=== PATIENT | male | born 1955 | race Two or more races ===

== ENCOUNTER 2022-10-20 15:19 | Inpatient (IN) | payer MEDICAID ==
[~2022-10-20] VITALS: Ht 188 cm; Wt 83.9 kg
--- NOTE | 2022-10-20 15:25 | NUR ---
PT ARRIVED VIA EMS; [facility]; PT HAS A FC WITH PURULENT URINE DRAINING.
--- NOTE | 2022-10-20 15:26 | NUR ---
JONY PAUL AT BEDSIDE FOR MSE
[2022-10-20] MEDS ORDERED: IV NORMAL SALINE 1000 ML BAG IV ONE (15:30)
[2022-10-20] MEDS ORDERED: TAMS-3 PO (16:09)
[2022-10-20] MEDS ORDERED: PANT40TA49 PO (16:09)
[2022-10-20] MEDS ORDERED: ZINC SULFATE PO (16:09)
[2022-10-20] MEDS ORDERED: ASCO500C18 PO (16:13)
[2022-10-20] MEDS ORDERED: METO-356 PO (16:13)
[2022-10-20] MEDS ORDERED: ACET325C7 PO (16:13)
[2022-10-20] MEDS ORDERED: QUET50TA PO (16:13)
[2022-10-20] MEDS ORDERED: LOSA100T31 PO (16:13)
[2022-10-20] MEDS ORDERED: METF-442 PO (16:13)
[2022-10-20] MEDS ORDERED: MULT-594 PO (16:13)
[2022-10-20] MEDS ORDERED: DOCU-141 PO (16:13)
[2022-10-20 16:15] LABS: HEMATOCRIT 32.2 % (36.7-47.1); MEAN CORPUSCULAR HEMOGLOBIN 30.8 uug (23.8-33.4); PLATELET COUNT (AUTO) 365 K/uL (152-348)
[2022-10-20 16:27] LABS: CARBON DIOXIDE 18 mmol/L (21-32); CHLORIDE 106 mmol/L (98-107); CREATININE 2.4 mg/dL (0.6-1.3); GLUCOSE 160 mg/dL (74-106); POTASSIUM 3.8 mmol/L (3.5-5.1); UREA NITROGEN, BLOOD 68 mg/dL (7-18)
[2022-10-20] MEDS ORDERED: levoFLOXacin 750MG/D5W 150 ML IV ONE ×2 (16:30)
--- NOTE | 2022-10-20 16:30 | NUR ---
NEW FC INSERTED AND UA OBTAINED AND SENT TO LAB. PT ANTONIO WELL
[2022-10-20 16:48] LABS: ALANINE AMINOTRANSFERASE 19 U/L (16-63); ALKALINE PHOSPHATASE 102 U/L (50-136); ASPARTATE AMINOTRANSFERASE 18 U/L (15-37); BILIRUBIN,DIRECT 0.1 mg/dL (0.0-0.2); BILIRUBIN,TOTAL 0.3 mg/dL (0.2-1.0); TOTAL PROTEIN, SERUM 8.3 g/dL (6.4-8.2)
[2022-10-20] MEDS ORDERED: ASPIRIN 300 MG RECTAL SUPP RC ONE ×2 (17:30→18:25)
[2022-10-20 17:36] LABS: *CLARITY,URINE TURBID (CLEAR); *COLOR,URINE LIGHT YELLOW (YELLOW)
[2022-10-20 17:37] LABS: *BILIRUBIN,URIN NEGATIVE (NEGATIVE); *BLOOD, URINE NEGATIVE (NEGATIVE); *KETONES,URINE NEGATIVE (NEGATIVE); *UROBILINOGEN,URINE 0.2 E.U./dl (NORMAL); LEUKOCYTE ESTERASE ,URINE 2+ (NEGATIVE); NITRITE, URINE TRACE (NEGATIVE); UGLUCOSE NEGATIVE (NEGATIVE)
[2022-10-20] MEDS ORDERED: DOCUSATE SODIUM 100 MG CAPSULE PO PRN (18:00)
[2022-10-20] MEDS ORDERED: REMEDY ESSENTIAL ZINC PASTE 113 GM TP PRN (18:00)
[2022-10-20] MEDS ORDERED: MAGNESIUM HYDROXIDE 30 ML LIQUID UDC PO PRN (18:00)
[2022-10-20] MEDS ORDERED: ACETAMINOPHEN 325 MG TABLET PO PRN (18:00)
[2022-10-20] MEDS ORDERED: ONDANSETRON 4 MG/2 ML VIAL IV PRN (18:00)
[2022-10-20 18:44] LABS: BACTERIA,URINE MODERATE /HPF (NONE SEEN); RBC,URINE 0-3 /HPF (0-3); SQUAMOUS EPITHELIAL CELL,UR FEW /HPF (NONE SEEN); WBC,URINE 20-50 /HPF (0-3)
[2022-10-20 18:45] LABS: TRIPLE PHOSPHATE CRYSTAL,UR FEW /HPF (NONE SEEN)
[2022-10-20] MEDS ORDERED: DEXTROSE 50% 50 ML DISP.SYRIN IV PRN (19:00)
--- NOTE | 2022-10-20 19:10 | NUR ---
SBAR TO TORRI KNAPP
[2022-10-20] MEDS ORDERED: VANCOMYCIN IV 1,750 MG in IV DEXTROSE 5% 500 ML IV ONE (19:30)
--- NOTE | 2022-10-20 21:04 | NUR ---
Report given to Stacey KNAPP Tele.
[2022-10-20] MEDS: CEFEPIME HCL 1 G in IV DEXTROSE 5% 50 ML IV SCH (22:00)
[2022-10-20 22:30] VITALS: BP 108/65
[2022-10-20] MEDS ORDERED: VANCOMYCIN 1000 MG VIAL ONE (22:53)
[2022-10-20] MEDS ORDERED: CEFEPIME HCL 1 G VIAL ONE (22:54)
--- NOTE | 2022-10-20 23:00 | NUR ---
RECEIVED FROM ER 67 Y/O MALE ALERT AND ORIENTED X1-2 PT CAME FROM [facility] PATIENT HAS HX OF DEMENTIA AND HAS IV 20G RT LATERAL FOREARM. INFUSING VANCOMYCIN ORDERED PATIENT TOLERATING WELL PATIENT HAS BREAKDOWN OF SKIN RASH IN GROIN AREA AND REDNESS. PT ALSO HAS EDEMATOUS SCROTUM ALONG WITH FOURTH TOE AMPUTATED PT CAME UP TO UNIT WITH DRY DRESSING STUCK TO WOUND CLEANED WOUND APPLIED NEW DRESSING ALONG WITH GAUZE AND JUANITA WALLACE ORDERED WOUND CONSULT. PT IS TELEMONITOR WHICH SHOWS SINUS RHYTHM. WILL CONTINUE TO MONITOR EVERY 2 HOURS FALL AND SAFETY ANY OTHER NEEDS PATIENT MAY HAVE. PAVAN FROM LAB REPORTED A CRITICAL LAB VALUE OF 389 TROPONIN BUT IS TRENDING DOWN FROM 479 WILL ENDORSE TO AM NURSE.
[2022-10-20] MEDS: TAMSULOSIN HCL 0.4 MG CAP.SR.24H PO SCH (23:53)
[2022-10-20] MEDS: METOPROLOL SUCCINATE XL 25 MG TAB.SR.24H PO SCH (23:55)
[2022-10-20] MEDS: BLOOD SUGAR DIAGNOSTIC 1 EACH STRIP VI SCH (23:55)
[2022-10-20] MEDS: HEPARIN SODIUM,PORCINE 5,000 UNITS/ML VIAL SQ SCH (23:56)
[2022-10-21] VITALS: BP 99/57
[2022-10-21 04:04] VITALS: BP 110/36
[2022-10-21] MEDS ORDERED: CEFEPIME HCL 1 G VIAL ONE (06:25)
[2022-10-21] MEDS: PANTOPRAZOLE SODIUM 40 MG TABLET.DR PO SCH (06:46)
[2022-10-21] MEDS: BLOOD SUGAR DIAGNOSTIC 1 EACH STRIP VI SCH ×4 (06:46→21:31)
[2022-10-21] MEDS: CEFEPIME HCL 1 G in IV DEXTROSE 5% 50 ML IV SCH ×3 (06:46→21:28)
[2022-10-21 07:16] LABS: HEMATOCRIT 28.5 % (36.7-47.1); MEAN CORPUSCULAR HEMOGLOBIN 30.7 uug (23.8-33.4); MEAN CORPUSCULAR VOLUME 93.8 fL (73.0-96.2); PLATELET COUNT (AUTO) 278 K/uL (152-348)
[2022-10-21 07:41] LABS: CREATININE 2.2 mg/dL (0.6-1.3); MAGNESIUM 1.8 mg/dL (1.8-2.4); PHOSPHOROUS 2.9 mg/dL (2.5-4.9)
[2022-10-21] MEDS: HEPARIN SODIUM,PORCINE 5,000 UNITS/ML VIAL SQ SCH ×2 (09:28→21:31)
[2022-10-21] MEDS: MULTIVITAMINS,THERAPEUTIC TABLET PO SCH (09:31)
[2022-10-21] MEDS: LOSARTAN POTASSIUM 50 MG TABLET PO SCH (09:32)
[2022-10-21] MEDS: QUETIAPINE FUMARATE 25 MG TABLET PO SCH ×2 (09:32→16:12)
[2022-10-21] MEDS: ASCORBIC ACID 500 MG TABLET PO SCH ×2 (09:33→16:12)
[2022-10-21] MEDS: METOPROLOL SUCCINATE XL 25 MG TAB.SR.24H PO SCH ×2 (09:33→21:29)
--- NOTE | 2022-10-21 11:49 | NUR ---
PATIENT SEEN AND EXAMINED BY JUANITA WALLACE WITH NEW ORDERS AND NOTED.
[2022-10-21 11:50] VITALS: BP 100/57
--- NOTE | 2022-10-21 12:41 | NUR ---
TROPONIN LEVEL PER LAB IS 160 TRENDING IN THE RIGHT DIRECTION BRITTANY GARCIA WITH NO NEW ORDERS AT THIS TIME.
[2022-10-21] MEDS: IV NS 1000 ML 1,000 ML IV PRN (16:01)
[2022-10-21 16:12] VITALS: BP 97/54
[2022-10-21] MEDS ORDERED: CLOTRIMAZOLE 1% CREAM 30 GM TUBE TOP SCH (20:00)
--- NOTE | 2022-10-21 21:00 | NUR ---
RECEIVED REPORT FROM AM NURSE KASSIDY PATIENT TROPONIN LEVEL IS TRENDING DOWN AND ENTERED PATIENT ROOM STATES" I DIDN'T RECEIVED DINNER.' PATIENT WAS GIVEN DINNER ATE 100 PERCENT OF MEAL. PATIENT DENIES PAIN. PT HS BLOOD SUGAR IS 157 PATIENT WAS GIVEN 2 UNIT OF REGULAR INSULIN FALL AND SAFETY MAINTAINED. WILL CONTINUE TO MONITOR FOR SAFETY.
[2022-10-21] MEDS: ATORVASTATIN 20 MG TABLET PO SCH (21:29)
[2022-10-21] MEDS: TAMSULOSIN HCL 0.4 MG CAP.SR.24H PO SCH (21:29)
[2022-10-21] MEDS: INSULIN REGULAR, HUMAN 300 UNIT/3 ML VIAL SQ PRN (21:36)
[2022-10-22] MEDS: IV NS 1000 ML 1,000 ML IV PRN ×2 (02:25→16:04)
[2022-10-22 05:39] LABS: HEMATOCRIT 23.6 % (36.7-47.1); PLATELET COUNT (AUTO) 231 K/uL (152-348)
[2022-10-22 05:53] LABS: CREATININE 2.3 mg/dL (0.6-1.3); POTASSIUM 3.8 mmol/L (3.5-5.1)
[2022-10-22] MEDS: CEFEPIME HCL 1 G in IV DEXTROSE 5% 50 ML IV SCH (06:27)
[2022-10-22] MEDS: PANTOPRAZOLE SODIUM 40 MG TABLET.DR PO SCH (06:27)
[2022-10-22] MEDS: BLOOD SUGAR DIAGNOSTIC 1 EACH STRIP VI SCH ×4 (06:40→20:38)
[2022-10-22] MEDS: INSULIN REGULAR, HUMAN 300 UNIT/3 ML VIAL SQ PRN ×2 (06:40→11:32)
[2022-10-22] MEDS ORDERED: VANCOMYCIN IV 1,250 MG in IV DEXTROSE 5% 250 ML IV ONE (08:00)
--- NOTE | 2022-10-22 08:00 | NUR ---
PATIENT IS AWAKE ALERT COOPERATIVE AND VERBALISED NEEDS DENIES PAIN OR DISCOMFORTS AT THIS TIME.ON IVF WITH NS AT 100 ML/HR WITH NO S/S OF INFILTERATION ON SITE NO S/S OF HYPO/HYPERGLYCEMIC REACTIONS AT THIS TIME CALL LIGHTS AND PERSONAL BELONGINGS ARE WITHIN EASY REACH WILL CONTINUE TO OBSERVE.
[2022-10-22] MEDS: ASPIRIN EC 81 MG TABLET.DR PO SCH (08:32)
[2022-10-22] MEDS: QUETIAPINE FUMARATE 25 MG TABLET PO SCH ×2 (08:32→16:08)
[2022-10-22] MEDS: MULTIVITAMINS,THERAPEUTIC TABLET PO SCH (08:32)
[2022-10-22] MEDS: METOPROLOL SUCCINATE XL 25 MG TAB.SR.24H PO SCH ×2 (08:33→20:29)
[2022-10-22] MEDS: LOSARTAN POTASSIUM 50 MG TABLET PO SCH (08:34)
[2022-10-22] MEDS: HEPARIN SODIUM,PORCINE 5,000 UNITS/ML VIAL SQ SCH ×2 (09:13→20:33)
[2022-10-22] MEDS: ASCORBIC ACID 500 MG TABLET PO SCH ×2 (09:42→16:08)
[2022-10-22 12:00] VITALS: BP 99/47
--- NOTE | 2022-10-22 14:00 | NUR ---
PATIENT SEEN AND EXAMINED BY JUANITA WALLACE WITH NEW ORDERS PATIENT REMAIN ON IV ATB WITH NO ADVERSE OR ALLERGIC REACTIONS AT THIS TIME ASSISTED WITH REPOSITIONING Q2H HEELS FLOATED.MADE COMFORTABLE WILL CONTINUE TO OBSERVE.
[2022-10-22 16:00] VITALS: BP 90/53
[2022-10-22] MEDS: CEFEPIME HCL 2 G in IV DEXTROSE 5% 100 ML IV SCH (17:17)
--- NOTE | 2022-10-22 19:35 | NUR ---
Received patient in bed, alert oriented, no sob no chest pain, tele monitor sinus rhythm, patient has no complain of pain at this time, good cath patent draining with yellow color urine, kept clean dry and comfortable. cont to monitor.
[2022-10-22 20:00] VITALS: BP 101/53
[2022-10-22] MEDS: TAMSULOSIN HCL 0.4 MG CAP.SR.24H PO SCH (20:28)
[2022-10-22] MEDS: ATORVASTATIN 20 MG TABLET PO SCH (20:28)
[2022-10-23] VITALS: BP 103/53
[2022-10-23] MEDS: IV NS 1000 ML 1,000 ML IV PRN ×2 (01:00→16:42)
[2022-10-23 04:00] VITALS: BP 96/53
[2022-10-23] MEDS: CEFEPIME HCL 2 G in IV DEXTROSE 5% 100 ML IV SCH ×2 (05:01→17:17)
[2022-10-23 06:38] LABS: HEMATOCRIT 22.1 % (36.7-47.1); MEAN CORPUSCULAR HEMOGLOBIN 31.2 uug (23.8-33.4); MEAN CORPUSCULAR VOLUME 93.9 fL (73.0-96.2); PLATELET COUNT (AUTO) 215 K/uL (152-348)
[2022-10-23] MEDS: PANTOPRAZOLE SODIUM 40 MG TABLET.DR PO SCH (06:38)
[2022-10-23] MEDS: BLOOD SUGAR DIAGNOSTIC 1 EACH STRIP VI SCH ×4 (06:40→20:54)
[2022-10-23 07:09] LABS: CREATININE 2.3 mg/dL (0.6-1.3); POTASSIUM 3.7 mmol/L (3.5-5.1)
--- NOTE | 2022-10-23 07:13 | NUR ---
Patient awake no sob no chest pain, no complain of pain, good cath patent, v/s wnl, kept clean and dry. cont to monitor.
--- NOTE | 2022-10-23 07:31 | NUR ---
RECEIVED PATIENT ASLEEP BUT EASILY AROUSABLE ON ROUNDS DENIES PAIN OR DISCOMFORTS ON ROOM AIR WITH NO SHORTNESS OF BREATH REMAIN ON IVF ORDERED WITH NO S/S OF INFILTERATION ON SITE REPOSITIONED FOR COMFORT HEELS FLOATED CALL LIGHTS AND PERSONAL BELONGINGS ARE WITHIN EASY REACH MADE COMFORTABLE WILL CONTINUE TO OBSERVE
[2022-10-23] MEDS ORDERED: VANCOMYCIN IV 750 MG in IV DEXTROSE 5% 250 ML IV ONE (08:00)
[2022-10-23] MEDS: ASPIRIN EC 81 MG TABLET.DR PO SCH (08:52)
[2022-10-23] MEDS: QUETIAPINE FUMARATE 25 MG TABLET PO SCH ×2 (08:53→16:41)
[2022-10-23] MEDS: ASCORBIC ACID 500 MG TABLET PO SCH ×2 (08:53→16:42)
[2022-10-23] MEDS: MULTIVITAMINS,THERAPEUTIC TABLET PO SCH (08:53)
[2022-10-23] MEDS: METOPROLOL SUCCINATE XL 25 MG TAB.SR.24H PO SCH ×2 (09:00→20:55)
[2022-10-23] MEDS: LOSARTAN POTASSIUM 50 MG TABLET PO SCH (09:00)
[2022-10-23] MEDS: HEPARIN SODIUM,PORCINE 5,000 UNITS/ML VIAL SQ SCH ×2 (09:02→21:05)
[2022-10-23] MEDS: CLOTRIMAZOLE 1% CREAM 30 GM TUBE TOP SCH ×2 (09:08→22:03)
[2022-10-23] MEDS: REMEDY ESSENTIAL ZINC PASTE 113 GM TP SCH ×2 (09:09→22:04)
--- NOTE | 2022-10-23 09:26 | NUR ---
DR MARTÍNEZ HERE SEEN PATIENT WITH NEW ORDERS AND NOTED.
--- NOTE | 2022-10-23 10:38 | NUR ---
WOUND CARE CONSULT: PT ADAMANTLY REFUSED SKIN ASSESSMENT AND STATES WANTS "INJECTION OF XYZ". RN AND PEST CONTROLLER ASSISTANT AWARE. DISCUSSED SKIN PROTECTION WITH NURSING STAFF. PER ADMISSION PHOTOS, PT HAS LEFT HIP WOUND AND FOOT WOUNDS, PRESENT ON ADMISSION. DR DANIELS AND DR AREVALO CALLED FOR SURGICAL AND DPM CONSULTS. MD IN AGREEMENT WITH PLAN OF CARE.
[2022-10-23 12:00] VITALS: BP 114/69
[2022-10-23] MEDS: INSULIN REGULAR, HUMAN 300 UNIT/3 ML VIAL SQ PRN ×2 (12:10→21:06)
--- NOTE | 2022-10-23 13:16 | NUR ---
DR AREVALO CARPET RENOVATOR HERE AND SEEN PATIENT WITH NO NEW ORDERS AT THIS TIME PATIENT REFUSED TO HAVE HIM SEE THE WOUND ON HID RIGHT FOOT.
--- NOTE | 2022-10-23 15:17 | NUR ---
PATIENT STATED HAS PAIN ON HIS ENTIRE BODY ESPECIALLY HIS LOWER EXTREMITIES AT TIMES JUANITA NOTIFIED WITH ORDERS WILL ASSESS PATIENT AND WILL MEDICATE NEEDED
[2022-10-23 16:00] VITALS: BP 123/66
[2022-10-23] MEDS: HYDROCODONE/APAP 5-325MG TABLET PO PRN ×2 (16:41→20:56)
--- NOTE | 2022-10-23 16:41 | NUR ---
MEDICATED WITH NORCO FOR PAIN ORDERED.
--- NOTE | 2022-10-23 17:55 | NUR ---
URINE SPECIMEN OBTAINED FROM THE [facility] C[facility] AND SENT TO THE LAB ORDERED.
[2022-10-23 18:02] LABS: *BILIRUBIN,URIN NEGATIVE (NEGATIVE); *BLOOD, URINE 2+ (NEGATIVE); *CLARITY,URINE CLEAR (CLEAR); *COLOR,URINE YELLOW (YELLOW); *KETONES,URINE NEGATIVE (NEGATIVE); *UROBILINOGEN,URINE 0.2 E.U./dl (NORMAL); LEUKOCYTE ESTERASE ,URINE 3+ (NEGATIVE); NITRITE, URINE NEGATIVE (NEGATIVE); PH,URINE 6.5 (5.0-8.0); UGLUCOSE NEGATIVE (NEGATIVE)
[2022-10-23 18:09] LABS: *CREATININE,URINE 30.3 mg/dL (30-125)
--- NOTE | 2022-10-23 19:30 | NUR ---
Received patient in bed alert able to make needs known, no sob no chest pain, complain of bilateral leg and feet pain, will medicate patient as ordered. Patient calm and cooperative with medications, but patient uncooperative with care, refused to be examine by belt worker, cont to monitor.
[2022-10-23 20:00] VITALS: BP 133/79
[2022-10-23] MEDS: ATORVASTATIN 20 MG TABLET PO SCH (20:55)
[2022-10-23] MEDS: TAMSULOSIN HCL 0.4 MG CAP.SR.24H PO SCH (20:55)
--- NOTE | 2022-10-23 21:00 | NUR ---
Patient awake, refused to be clean, patient has bowel movement and refused to be clean , became verbally aggressive, and threaten staff that he will robb employee. Patient threaten staff that he will be physically combative towards employee, reported to charge nurse. cont to encourage .
--- NOTE | 2022-10-24 | NUR ---
Patient soiled with bowel movement, continue to refused to be clean, despite explanation, of risk for further skin breakdown, still refused, cont to encourage.
[2022-10-24] MEDS: IV NS 1000 ML 1,000 ML IV PRN (02:00)
[2022-10-24] MEDS: HYDROCODONE/APAP 5-325MG TABLET PO PRN ×2 (03:42→21:10)
--- NOTE | 2022-10-24 03:52 | NUR ---
Patient medicated with Narco po for leg/foot pain, tried to obtain stool for sample still refused, explained to patient that he would not be moved at all just to scoop a specimen of BM still refused, refused to be clean.
[2022-10-24] MEDS: CEFEPIME HCL 2 G in IV DEXTROSE 5% 100 ML IV SCH ×2 (05:08→17:07)
--- NOTE | 2022-10-24 05:55 | NUR ---
Patient refused lab works, gets agitated, refused to be clean, patient tend to be hostile towards the staff, cont to offer.
[2022-10-24] MEDS: PANTOPRAZOLE SODIUM 40 MG TABLET.DR PO SCH (06:19)
[2022-10-24] MEDS: BLOOD SUGAR DIAGNOSTIC 1 EACH STRIP VI SCH ×4 (06:22→21:06)
[2022-10-24] MEDS: MULTIVITAMINS,THERAPEUTIC TABLET PO SCH (08:33)
[2022-10-24] MEDS: ASCORBIC ACID 500 MG TABLET PO SCH ×2 (08:33→16:54)
[2022-10-24] MEDS: HEPARIN SODIUM,PORCINE 5,000 UNITS/ML VIAL SQ SCH ×2 (08:35→20:42)
[2022-10-24] MEDS: METOPROLOL SUCCINATE XL 25 MG TAB.SR.24H PO SCH ×2 (08:37→20:52)
[2022-10-24] MEDS: QUETIAPINE FUMARATE 25 MG TABLET PO SCH ×2 (08:42→16:54)
[2022-10-24] MEDS: REMEDY ESSENTIAL ZINC PASTE 113 GM TP SCH ×2 (08:43→21:06)
[2022-10-24] MEDS: CLOTRIMAZOLE 1% CREAM 30 GM TUBE TOP SCH ×2 (08:43→20:53)
--- NOTE | 2022-10-24 10:00 | NUR ---
PT RECEIVED AM MEDS AND TOLERATED WELL. REMINDED THE IMPORTANCE OF REPOSITIONING AND CLEANING BUT REFUSE TO BE TURNED AND CLEANED. ASKED 3X BUT STILL PT SAID NO.
--- NOTE | 2022-10-24 10:18 | NUR ---
SW consult requested for 67 year old patient to assess living situation. Patient is alert and oriented X4 and presents with anxious mood and congruent affect. Patient appears agitated and refused to answer SW assessment questions. Per patient's facesheet, his primary contact is Eugenio Medel ([phone]) and he currently resides at [address] [place] [address]. SW unable to ascertain history of substance abuse and there is no toxicology report. SW unable to ascertain history of psychiatric diagnosis. SW spoke to the patient's son, Eugenio ([phone]) and he states the patient was living in a board and care in [place] and he was receiving appropriate care at the facility. Eugenio states that he is open to the patient going to a SNF closer to where he lives in [place] if the patient is agreeable and he will talk to him today in person.
[2022-10-24 12:00] VITALS: BP 127/61
--- NOTE | 2022-10-24 13:00 | NUR ---
pT. TOOK medications and tolerated it well. BUT HE REFUSED TO HAVE HIS LABWORKS DONE INSPITE OF THE TEACHINGS PROVIDED. WILL CONTINUE TO ENCOURAGE AND ASK.
[2022-10-24 16:00] VITALS: BP 120/79
--- NOTE | 2022-10-24 17:43 | NUR ---
PT. REFUSED INK PRINTER AND WOUND CONSULT. LEFT MESSAGE TO FAMILY (SON) TO TALK TO THE PT TO ENCOURAGE HIM TO COOPERATE. WILL CONTINUE TO ENCOURAGE THE PT.
[2022-10-24 20:00] VITALS: BP 128/65
[2022-10-24] MEDS: TAMSULOSIN HCL 0.4 MG CAP.SR.24H PO SCH (20:39)
[2022-10-24] MEDS: DOXYCYCLINE HYCLATE IV 100 MG in IV DEXTROSE 5% 100 ML IV SCH (20:39)
[2022-10-24] MEDS: ATORVASTATIN 20 MG TABLET PO SCH (20:39)
[2022-10-24] MEDS: CADEXOMER IODINE 40 GM TUBE TOP SCH (21:00)
--- NOTE | 2022-10-24 22:05 | NUR ---
PT HAD A BOWEL MOVEMENT. REFUSED TO BE CLEANED UP, PT STATED IT HURTS TO MOVE GET THE FUCK OUT. ALSO REFUSED FOR WOUNDS TO BE PHOTOGRAPHED FOR DOCUMENTATION.
[2022-10-25] MEDS: IV NS 1000 ML 1,000 ML IV PRN ×2 (03:17→14:59)
[2022-10-25 04:00] VITALS: BP 101/50
[2022-10-25] MEDS: CEFEPIME HCL 2 G in IV DEXTROSE 5% 100 ML IV SCH ×2 (05:01→17:34)
[2022-10-25] MEDS: HYDROCODONE/APAP 5-325MG TABLET PO PRN (06:14)
[2022-10-25] MEDS: PANTOPRAZOLE SODIUM 40 MG TABLET.DR PO SCH (06:14)
[2022-10-25] MEDS: BLOOD SUGAR DIAGNOSTIC 1 EACH STRIP VI SCH ×4 (06:38→21:16)
--- NOTE | 2022-10-25 06:38 | NUR ---
Pt clean and dry. All medications administered. All needs attended.
[2022-10-25 06:43] LABS: HEMATOCRIT 23.4 % (36.7-47.1); MEAN CORPUSCULAR HEMOGLOBIN 31.3 uug (23.8-33.4); MEAN CORPUSCULAR VOLUME 93.1 fL (73.0-96.2); PLATELET COUNT (AUTO) 233 K/uL (152-348)
--- NOTE | 2022-10-25 07:30 | NUR ---
RECEIVED REPORT: 1) MENTAL STATE: AOx2-2 2) BREATHING: No sign of SOB - RA, distress, non verbal signs of pain. 3) ELIMINATION: Has a catheter in situ - draining slightly concentrated urine. 4) INFECTION CONTROL: (i) Patient has iv fluids running as per regime. (ii) Iv access patent, clean, dry and no sign of infection or inflammation observed 5) PRESSURE AREA CARE: Patient has wounds - however, no pics, refuse wound care conduct and family welfare social work professor review 6) MOBILITY: Patient in bed bound. 7) HYGIENE: Refuses most care 8) BLOOD SUGAR CONTROL: Patient is diabetic - ACHS blood sugars but never need insulin cover. 9) Will continue to assess, plan, implement and evaluate care accordingly. 10) PLAN; (i) maintain safety (ii) reassure patient
[2022-10-25] MEDS: CLOTRIMAZOLE 1% CREAM 30 GM TUBE TOP SCH ×2 (09:00→21:00)
[2022-10-25] MEDS ORDERED: CIPR-262 PO (09:56)
[2022-10-25] MEDS ORDERED: DOXY100T2 PO (09:56)
[2022-10-25] MEDS: MULTIVITAMINS,THERAPEUTIC TABLET PO SCH (10:07)
[2022-10-25] MEDS: DOXYCYCLINE HYCLATE IV 100 MG in IV DEXTROSE 5% 100 ML IV SCH (10:07)
[2022-10-25] MEDS: ASCORBIC ACID 500 MG TABLET PO SCH ×2 (10:07→17:33)
[2022-10-25] MEDS: METOPROLOL SUCCINATE XL 25 MG TAB.SR.24H PO SCH ×2 (10:07→21:15)
[2022-10-25] MEDS: QUETIAPINE FUMARATE 25 MG TABLET PO SCH ×2 (10:07→17:33)
[2022-10-25] MEDS: CADEXOMER IODINE 40 GM TUBE TOP SCH (10:08)
[2022-10-25] MEDS: REMEDY ESSENTIAL ZINC PASTE 113 GM TP SCH ×2 (10:08→21:00)
[2022-10-25] MEDS: HEPARIN SODIUM,PORCINE 5,000 UNITS/ML VIAL SQ SCH ×2 (10:14→21:15)
--- NOTE | 2022-10-25 11:26 | NUR ---
Blood Sugar 119 - no insulin cover required.
[2022-10-25 11:31] VITALS: BP 101/56
--- NOTE | 2022-10-25 11:55 | NUR ---
HYGIENE: 1) Refused to have a bed bath - stated that "Its my body - i don't want" 2) Reassurance provided to let RN/SIGNALS INTELLIGENCE SUPERINTENDENT know if patient does change his mind
--- NOTE | 2022-10-25 14:45 | NUR ---
IV FLUIDS: 1) New 1L bag of N/S 0.9% administered as per prescription. 2) IV access remains patent, clean, dry, and no sign of infection or inflammation observed.
--- NOTE | 2022-10-25 14:48 | NUR ---
RADHA consult requested for discharge planning. Patient is a 67 year old male that presents with anxious mood and congruent affect. Patient is alert and oriented X3. RADHA asked the patient where he was residing before being admitted to the hospital and the patient gave the address [address] [place] [id number], but refused to give the name of the board and care facility. RADHA was unable to ascertain information for the board and care facility the patient resided in. RADHA left a voicemail for the patient's son asking to call this RADHA back with information and informed charge nurse Shannon and porter sample case, Faviola. RADHA will continue to follow up.
--- NOTE | 2022-10-25 15:06 | NUR ---
DISCHARGE PLAN: 1) Spoke to vocational case manager - awaiting to hear from son to discharge patient. 2) Safety issues are of concern because of mobility and mental state. 3) Patient and son not corporative with vocational case manager. 4) Information conflict between son and patient in regards to where patient lives.
--- NOTE | 2022-10-25 16:15 | NUR ---
Discussed with pt regarding COORDINATOR OF ONLINE PROGRAMS's concern about pt refusing to be cleaned and turned. Pt was stating - "THIS IS MY BODY THIS IS MY RIGHT." discussed with pt risk on not being turned q 2 hrs. Educated pt and Emphasized importance to being turned q 2 hrs to promote skin care and prevent skin breakdown. pt continuously refuse treatment.
--- NOTE | 2022-10-25 16:30 | NUR ---
BS - 125 - NOT SHOWING IN LAB RESULTS - NO INSULIN COVER REQUIRED
[2022-10-25 16:38] VITALS: BP 116/75
--- NOTE | 2022-10-25 17:15 | NUR ---
PM MEDICATION - Took all due meds without any issues or encouragement.
--- NOTE | 2022-10-25 17:43 | NUR ---
EATING & DRINKIN) Noticed patient only ate the Tuna that was delivered with salad. 2) Offered him a sandwich & soda - of which patient accepted 3) Ate 100% of his food
--- NOTE | 2022-10-25 19:47 | NUR ---
ENDORSED CARE TO NIGHT STAFF ACCORDINGLY
[2022-10-25 21:08] VITALS: BP 111/60
[2022-10-25] MEDS: ATORVASTATIN 20 MG TABLET PO SCH (21:15)
[2022-10-25] MEDS: TAMSULOSIN HCL 0.4 MG CAP.SR.24H PO SCH (21:15)
[2022-10-25] MEDS: DOXYCYCLINE HYCLATE 100 MG TABLET PO SCH (21:15)
[2022-10-26] MEDS: IV NS 1000 ML 1,000 ML IV PRN (03:09)
[2022-10-26] MEDS: CEFEPIME HCL 2 G in IV DEXTROSE 5% 100 ML IV SCH (06:00)
[2022-10-26] MEDS: PANTOPRAZOLE SODIUM 40 MG TABLET.DR PO SCH (06:06)
[2022-10-26 06:09] VITALS: BP 104/56
[2022-10-26] MEDS: BLOOD SUGAR DIAGNOSTIC 1 EACH STRIP VI SCH ×2 (06:32→11:44)
[2022-10-26] MEDS: QUETIAPINE FUMARATE 25 MG TABLET PO SCH (08:46)
[2022-10-26] MEDS: DOXYCYCLINE HYCLATE 100 MG TABLET PO SCH (08:46)
[2022-10-26] MEDS: METOPROLOL SUCCINATE XL 25 MG TAB.SR.24H PO SCH (08:51)
[2022-10-26] MEDS: MULTIVITAMINS,THERAPEUTIC TABLET PO SCH (08:51)
[2022-10-26] MEDS: HEPARIN SODIUM,PORCINE 5,000 UNITS/ML VIAL SQ SCH (08:52)
[2022-10-26] MEDS: ASCORBIC ACID 500 MG TABLET PO SCH (08:52)
[2022-10-26] MEDS: CADEXOMER IODINE 40 GM TUBE TOP SCH (09:00)
[2022-10-26] MEDS: CLOTRIMAZOLE 1% CREAM 30 GM TUBE TOP SCH (09:00)
[2022-10-26] MEDS: REMEDY ESSENTIAL ZINC PASTE 113 GM TP SCH (09:00)
[2022-10-26 11:37] VITALS: BP 91/49
--- NOTE | 2022-10-26 11:44 | NUR ---
patient is alert, oriented to name, date of , and place. no sob, respirations are even nonlabored, offered wound care, patient strongly refused to have wound care done, and have pictures taken. patient became agitated and started yelling that get the f... out of here I do not want any wound care and no pictures. Murray catheter is intact, draining yellow urine. patient took all his morning medications.
[2022-10-26] MEDS: HYDROCODONE/APAP 5-325MG TABLET PO PRN (13:34)
[2022-10-26] MEDS ORDERED: LORAZEPAM 2 MG/1 ML VIAL IV ONE (14:00)
--- NOTE | 2022-10-26 15:32 | NUR ---
patient refuse to go earlier, ambulance went back, called BHARATHI Solomon and ativan given as ordered. patient is sleepy at this time, however gets agitated when approached, and still refused to go. laborer cook house made aware. son francesco called and son spoke to patient as well. patient stated he is not going. Addendum: 10/26/22 at 1718 by ANDI VALDOVINOS RN RN offered wound care again, patient refused any wound care to be done. risks and benefits explained, patient still refused wound care. patient right to refuse respected.
[2022-10-26 15:41] VITALS: BP 93/52
[2022-10-26] MEDS ORDERED: PROTEIN SUPPLEMENT (PROSTAT) 30 ML LIQUID PO SCH (17:00)
--- NOTE | 2022-10-26 17:18 | NUR ---
patient is discharged. written instructed provided, IV access removed, ID removed, no belongings on list. Addendum: 10/26/22 at 1722 by ANDI VALDOVINOS RN RN good catheter intact and draining yellow color urine. supervisor communications and signals on duty at bedside assisting patient to discharge.
== END 2022-10-26 17:05 | DRG 720 ==
LOC: ER 15:19 → TELE3 18:26 → MEDSURG3 10-23 09:55
PROVIDERS: ADMIT Nurse Practitioner Acute Care; ATTEND Nurse Practitioner Acute Care
PROC: 05HC33Z Insertion of Infusion Device into Left Basilic Vein, Percutaneous Approach (ICD-10-PCS; principal; 2022-10-21)
DX: A41.9 Sepsis, unspecified organism (principal); N17.0 Acute kidney failure with tubular necrosis; I21.A1 Myocardial infarction type 2; G93.41 Metabolic encephalopathy; E44.0 Moderate protein-calorie malnutrition; E88.09 Other disorders of plasma-protein metabolism, not elsewhere classified; D63.8 Anemia in other chronic diseases classified elsewhere; D68.59 Other primary thrombophilia; E87.20 Acidosis, unspecified; R65.20 Severe sepsis without septic shock; N39.0 Urinary tract infection, site not specified; N40.0 Benign prostatic hyperplasia without lower urinary tract symptoms; I12.9 Hypertensive chronic kidney disease with stage 1 through stage 4 chronic kidney disease, or unspecified chronic kidney disease; N18.9 Chronic kidney disease, unspecified; F03.90 Unspecified dementia, unspecified severity, without behavioral disturbance, psychotic disturbance, mood disturbance, and anxiety; E11.42 Type 2 diabetes mellitus with diabetic polyneuropathy; Z66 Do not resuscitate; Z74.01 Bed confinement status; Z79.84 Long term (current) use of oral hypoglycemic drugs; S31.829A Unspecified open wound of left buttock, initial encounter; X58.XXXA Exposure to other specified factors, initial encounter; Z20.822 Contact with and (suspected) exposure to COVID-19; Y92.199 Unspecified place in other specified residential institution as the place of occurrence of the external cause; N50.82 Scrotal pain; Z79.899 Other long term (current) drug therapy; E78.5 Hyperlipidemia, unspecified; Z53.20 Procedure and treatment not carried out because of patient's decision for unspecified reasons; L97.519 Non-pressure chronic ulcer of other part of right foot with unspecified severity; L08.9 Local infection of the skin and subcutaneous tissue, unspecified; Z91.199 Patient's noncompliance with other medical treatment and regimen due to unspecified reason; E11.22 Type 2 diabetes mellitus with diabetic chronic kidney disease
CPT/HCPCS: 36415; 71045; 76770; 83605; 83735; 84100; 84300; 84484; 85025; 85730; 87040; 93005; 93307; A4663; A6209; G0378; J0692; J1644; J1815; J1956; J2060; J3370; J3490; J7040; J7050; J7060